=== PATIENT | female | born 1980 | race Caucasian/White ===

== ENCOUNTER 2021-02-11 10:51 | Outpatient (CLI) | payer MEDICAID, SELFPAY ==
--- NOTE | 2021-02-11 10:58 | US_ITS ---
WS: [id number] ULTRASOUND PELVIS TECHNIQUE: Transabdominal and transvaginal. ULTRASOUND PELVIS TECHNIQUE: Transabdominal. CLINICAL INFORMATION: ACUTE PELVIC PAIN LMP: February 10, 2021 : No. COMPARISON: None. FINDINGS: Uterus Orientation: Anteverted. Size: 9.1 cm x 5.1 cm x 3.7 cm. Masses: None. Cervix: 0.7 cm. Incidental nabothian cysts. Endometrium: Normal. Endometrium thickness: 1.0 cm. Adnexa: Normal. Right ovary size: 4.6 cm x 4.9 cm x 3.4 cm. Right ovary volume: 39.5 ccm3. Left ovary size: 3.1 cm x 2.4 cm x 1.7 cm. Left ovary volume: 6.8 ccm3 Free fluid: None. Other findings: None. US/US pelvic with transvaginal IMPRESSION: Normal pelvic ultrasound
== END 2021-02-11 10:52 | disposition home or self-care (01) ==
PROVIDERS: Visit Provider Nurse Practitioner
DX: R10.2 Pelvic and perineal pain (principal)
CPT/HCPCS: 76830; 76856